=== PATIENT | female | born 1950 ===

== ENCOUNTER 2018-08-13 14:58 | Emergency (ER) | payer OTHER ==
[~2018-08-13 14:58] MED LIST: Calcium Chloride 1000 mg/10 ml Syringe ONE
[2018-08-13 16:35] VITALS: PULSE 0; RESP 12; O2SAT 98
--- NOTE | 2018-08-13 17:11 | C.PDOC ---
History Of Present Illness 67 year old female is brought to the ED by EMS for evaluation. As per family, patient was noted to be short of breath earlier today. Family tried asking patient if she want to go to the hospital, but they experienced trouble convincing her. Patient then had two seizures which were witnessed by family, prompting them to call 911. Family states patient has history of seizures. Upon medic arrival, patient became bradycardic, short of breath and increasingly unresponsive en route to the ED. EMS state patient then went into cardiac arrest and was in PEA. EMS attempted IV access without success, but were able to give one epinephrine via IO access. Upon ED arrival, patient was still found to be in PEA. Additional information limited secondary to patient's clinical condition. Chief Complaint (Nursing): Cardiac Arrest History Per: Patient, EMS, Family Reason For Code Blue: Unresponsive Circumstances: Brought To ED By EMS Arrest Witnessed By: Other (EMS) Medications Given Prior To MD Arrival: Yes: Epinephrine - Initial Findings Mentation: Unresponsive Rhythm: PEA Past Medical History Reviewed: Historical Data, Nursing Documentation, Vital Signs Vital Signs: Last Vital Signs Temp Pulse 0 L 08/13/18 15:00 Resp 12 08/13/18 15:00 BP Pulse Ox 98 08/13/18 15:00 - Medical History PMH: Seizures, TIA Surgical History: No Surg Hx Family History: States: Unknown Family Hx - Social History Hx Alcohol Use: No Hx Substance Use: No - Immunization History Hx Tetanus Toxoid Vaccination: No Hx Influenza Vaccination: No Hx Pneumococcal Vaccination: No Review Of Systems Review Of Systems: ROS cannot be obtained secondary to pt's inabilty to answer questions. Physical Exam - Physical Exam Appears: Non-toxic, In Acute Distress Skin: No Warm (cool), Diaphoretic Head: Atraumatic, Normacephalic Oral Mucosa: Moist Neck: Supple Chest: Symmetrical, No Deformity, No Tenderness Cardiovascular: Rhythm Regular, No Murmur Respiratory: Other (coarse breath sounds ) Gastrointestinal/Abdominal: Distention Extremity: Other (no pulses palpated) Neurological/Psych: Other (unresponsive ) ED Course And Treatment O2 Sat by Pulse Oximetry: 98 (on RA ) Pulse Ox Interpretation: Normal Medical Decision Making Medical Decision Making: Progress: Code heart called upon patient arrival as EMS EKG shows possible STEMI. Dr. Boss at bedside, reviewed medic EKG, unlikely STEMI. May need to rule out PE as patient has new onset RBBB. Patient arrived in PEA. ACLS Protocol performed from 1448 to 1544. Patient remained in PEA from 1448 to 1523. Epinephrine 1mg given every 3-5 minutes. Pulse check performed every 3-5 minutes. Patient with sinus bradycardia at 1528 and 1532, asystole at 1534 then return to PEA at 1540. 1mg atropine given at 1530. 1mg calcium chloride given 1531. Time of 1544. Disposition - Disposition Disposition Time: 15:44 Condition: Forms: [employer] ([employer]) - Clinical Impression Clinical Impression: Cardiac arrest Critical Care Time - Critical Care Note Total Time (in mins): 70 Documented critical care: time excludes all time spent performing seperately billable procedures. - Scribe Statement The provider has reviewed the documentation as recorded by the Scribe (Ellie Bob) Provider Attestation: All medical record entries made by the Scribe were at my direction and personally dictated by me. I have reviewed the chart and agree that the record accurately reflects my personal performance of the history, physical exam, medical decision making, and the department course for this patient. I have also personally directed, reviewed, and agree with the discharge instructions and disposition.
== END 2018-08-13 15:44 ==
LOC: C.ER 14:58
DX: I46.9 Cardiac arrest, cause unspecified (principal)
CPT/HCPCS: 92950; 99285; J0171